=== PATIENT | female | born 1995 | race Caucasian/White ===

== ENCOUNTER 2016-09-18 15:24 | Emergency (ER) | payer OTHER ==
[2016-09-18 15:48] VITALS: BP 127/76; PULSE 80; RESP 18; TEMP 97.8; O2SAT 99
--- NOTE | 2016-09-18 16:30 | ED PDOC ---
HPI: Skin/Bite Injury Time Seen by Provider: 09/18/16 16:15 Chief Complaint (Nursing): Abnormal Skin Integrity Chief Complaint (Provider): rash History Per: Patient History/Exam Limitations: no limitations Onset/Duration Of Symptoms: Days (3-4) Additional Complaint(s): 21yo M in Ed for eval of rash to LE b/l x 2-3 days -states rash is ithcy and red and progressing. Pt denies fever, chills, foreign travel sick contacts, denies bed bugs in household. denies drainage from wound. denies pain denies swelling of legs. Past Medical History Reviewed: Historical Data, Nursing Documentation, Vital Signs Vital Signs: Last Vital Signs Temp 97.8 F 09/18/16 15:46 Pulse 80 09/18/16 15:46 Resp 18 09/18/16 15:46 BP 127/76 09/18/16 15:46 Pulse Ox 99 09/18/16 15:46 - Medical History PMH: No Chronic Diseases - Family History Family History: States: No Known Family Hx - Immunization History Hx Tetanus Toxoid Vaccination: Yes - Home Medications Home Medications: Ambulatory Orders Medication Instructions Recorded Nitrofurantoin Macrocrystals 100 mg PO BID #14 cap 11/28/14 [Macrobid] Ibuprofen [Motrin Tab] 800 mg PO Q6H PRN #20 tab 04/21/16 Silver Sulfadiazine 1% [Silver 1 unit TP BID #0 jar 04/21/16 Sulfadiazine] oxyCODONE/Acetaminophen [Percocet 1 ea PO Q6H PRN #15 tab 04/21/16 5/325 mg Tab] Calamine/Pramoxine [Caladryl] 180 ml TP DAILY #1 bottle 09/18/16 Nystatin/Triamcinolone [Mycolog 30 gm EXT DAILY #1 tube 09/18/16 Ointment] - Allergies Allergies/Adverse Reactions: Allergies Allergy/AdvReac Type Severity Reaction Status Date / Time No Known Allergies Allergy Verified 11/28/14 16:47 Review of Systems ROS Statement: Except As Marked, All Systems Reviewed And Found Negative Skin: Positive for: Rash Physical Exam - Reviewed Nursing Documentation Reviewed: Yes Vital Signs Reviewed: Yes - Physical Exam Appears: Positive for: Well, Non-toxic, No Acute Distress Head Exam: Positive for: ATRAUMATIC, NORMAL INSPECTION, NORMOCEPHALIC Skin: Positive for: Normal Color, Warm, Rash (b/l thighs, beeft red lesions with satelite lesions noted. no vesicles no induration. ) Cardiovascular/Chest: Positive for: Regular Rate, Rhythm Respiratory: Positive for: CNT, Normal Breath Sounds Extremity: Positive for: Normal ROM. Negative for: Swelling Neurologic/Psych: Positive for: Alert, Oriented - ECG O2 Sat by Pulse Oximetry: 99 Medical Decision Making Medical Decision Making: dx: dermatitis. -queta Rx: nystain and caladryl and f/u with pmd. Disposition - Clinical Impression Clinical Impression: Rash - Patient ED Disposition Is Patient to be Admitted: No Counseled Patient/Family Regarding: Diagnosis, Need For Followup, Rx Given - Disposition Disposition: Routine/Home Disposition Time: 16:45 Condition: STABLE Prescriptions: Calamine/Pramoxine [Caladryl] 180 ml TP DAILY #1 bottle Nystatin/Triamcinolone [Mycolog Ointment] 30 gm EXT DAILY #1 tube Instructions: Queta Albicans Antigen (Into the skin)
== END 2016-09-18 17:48 | disposition home or self-care (01) ==
LOC: H.ER 15:24
DX: R21 Rash and other nonspecific skin eruption (principal)

== ENCOUNTER 2018-02-22 02:24 | Emergency (ER) | payer OTHER ==
[2018-02-22 02:44] VITALS: RESP 18; O2SAT 100
[2018-02-22] MEDS ORDERED: Sodium Chloride 0.9% 1,000 ML IV STA (03:02)
--- NOTE | 2018-02-22 03:05 | ED PDOC ---
HPI: Abdomen Time Seen by Provider: 02/22/18 02:55 Chief Complaint (Nursing): Abdominal Pain Chief Complaint (Provider): abdominal pain History Per: Patient History/Exam Limitations: no limitations Onset/Duration Of Symptoms: Hrs (12) Current Symptoms Are (Timing): Still Present Location Of Pain/Discomfort: Epigastric Associated Symptoms: Nausea, Vomiting Additional Complaint(s): 22 y/o female presents for evaluation of upper abdominal pain x 12 hours. Associated multiple episodes of vomiting. Patient states symptoms started an hour and a half after eating fish soup. Denies fever, chest pain, shortness of breath, palpitations, changes in bowel movements, urinary symptoms. Past Medical History Reviewed: Historical Data, Nursing Documentation, Vital Signs Vital Signs: Last Vital Signs Temp 98.1 F 02/22/18 02:39 Pulse 66 02/22/18 02:39 Resp 18 02/22/18 02:39 BP 126/81 02/22/18 02:39 Pulse Ox 100 02/22/18 03:05 - Medical History PMH: No Chronic Diseases - Surgical History Surgical History: No Surg Hx - Family History Family History: States: No Known Family Hx - Living Arrangements Living Arrangements: With Family - Immunization History Hx Tetanus Toxoid Vaccination: Yes - Home Medications Home Medications: Ambulatory Orders Medication Instructions Recorded Nitrofurantoin Macrocrystals 100 mg PO BID #14 cap 11/28/14 [Macrobid] Ibuprofen [Motrin Tab] 800 mg PO Q6H PRN #20 tab 04/21/16 Silver Sulfadiazine 1% [Silver 1 unit TP BID #0 jar 04/21/16 Sulfadiazine] oxyCODONE/Acetaminophen [Percocet 1 ea PO Q6H PRN #15 tab 04/21/16 5/325 mg Tab] Calamine/Pramoxine [Caladryl] 180 ml TP DAILY #1 bottle 09/18/16 Nystatin/Triamcinolone [Mycolog 30 gm EXT DAILY #1 tube 09/18/16 Ointment] Famotidine [Pepcid] 20 mg PO BID #20 tab 02/22/18 Ondansetron ODT [Zofran ODT] 4 mg PO Q8 PRN #10 odt 02/22/18 - Allergies Allergies/Adverse Reactions: Allergies Allergy/AdvReac Type Severity Reaction Status Date / Time No Known Allergies Allergy Verified 02/22/18 02:38 Review of Systems ROS Statement: Except As Marked, All Systems Reviewed And Found Negative Gastrointestinal: Positive for: Nausea, Vomiting, Abdominal Pain Physical Exam - Reviewed Nursing Documentation Reviewed: Yes Vital Signs Reviewed: Yes - Physical Exam Appears: Positive for: Well, Non-toxic, No Acute Distress Head Exam: Positive for: ATRAUMATIC, NORMAL INSPECTION, NORMOCEPHALIC Skin: Positive for: Normal Color Eye Exam: Positive for: Normal appearance ENT: Positive for: Normal ENT Inspection Cardiovascular/Chest: Positive for: Regular Rate, Rhythm Respiratory: Positive for: Normal Breath Sounds Gastrointestinal/Abdominal: Positive for: Bowel Sounds, Soft, Tenderness ( epigastric) Back: Positive for: Normal Inspection Extremity: Positive for: Normal ROM Neurologic/Psych: Positive for: Alert, Oriented (x3) - Laboratory Results Result Diagrams: 02/22/18 03:47 02/22/18 03:47 - ECG O2 Sat by Pulse Oximetry: 100 - Progress ED Course And Treament: labs, urine, IV fluids, IV zofran, IV pepcid On re-eval, patient states she is feeling better. Tylenol PO ordered for mild headache 5:25 Patient tolerated PO. States she is feeling better and would like to go home. Patient educated on findings, discharged with rx Pepcid, Zofran Advised fluids, bland diet. Follow up PMD 2-3 days Return precautions given Disposition - Clinical Impression Clinical Impression: Abdominal pain, Nausea and vomiting - Patient ED Disposition Is Patient to be Admitted: No Counseled Patient/Family Regarding: Studies Performed, Diagnosis, Need For Followup, Rx Given - Disposition Disposition: Routine/Home Disposition Time: 05:28 Condition: IMPROVED Prescriptions: Famotidine [Pepcid] 20 mg PO BID #20 tab Ondansetron ODT [Zofran ODT] 4 mg PO Q8 PRN #10 odt PRN Reason: Nausea/Vomiting Instructions: Acute Abdomen (Belly Pain), Adult (DC) Forms: W-21 (Omani)
[2018-02-22 03:51] LABS: BASO % 0.4 % (0.0-2.0); EOS % 0.1 % (0.0-4.0); HEMOGLOBIN 13.8 g/dL (12.0-16.0); LYMPH # 1.2 K/uL (1.0-4.3); LYMPH % 14.2 % (20.0-40.0); MEAN CELL VOLUME 86.6 fl (81.0-99.0); MEAN CORPUSCULAR HEMOGLOBIN 29.3 pg (27.0-31.0); MEAN CORPUSCULAR HGB CONC 33.8 g/dL (33.0-37.0); MEAN PLATELET VOLUME 8.1 fl (7.2-11.7); MONO # 0.3 K/uL (0.0-0.8); MONO % 3.4 % (0.0-10.0); NEUT # 6.8 K/uL (1.8-7.0); NEUT % 81.9 % (50.0-75.0); NRBC % 0.1 % (0.0-0.0); RBC 4.73 Mil/uL (3.80-5.20); RED CELL DISTRIBUTION WIDTH 14.3 % (11.5-14.5); WHITE BLOOD COUNT 8.3 K/uL (4.8-10.8)
[2018-02-22 03:58] LABS: ALB/GLOB RATIO 1.1 (1.0-2.1); ALBUMIN 4.4 g/dL (3.5-5.0); ALT/SGPT 14 U/L (9-52); AST/SGOT 19 U/L (14-36); BLOOD UREA NITROGEN 14 mg/dl (7-17); CALCIUM 9.1 mg/dL (8.4-10.2); GFR NON-AFRICAN AMERICAN > 60; LIPASE 73 U/L (23-300)
[2018-02-22 05:51] VITALS: BP 102/55; PULSE 71; TEMP 98.3
== END 2018-02-22 05:52 | disposition home or self-care (01) ==
LOC: H.ER 02:24
DX: R10.9 Unspecified abdominal pain (principal); R11.2 Nausea with vomiting, unspecified
CPT/HCPCS: 80053; 81025; 83690; 85025; 96374; 99284; J2405; J7030

== ENCOUNTER 2018-02-23 03:09 | Inpatient (IN) | payer OTHER ==
[2018-02-23] MEDS ORDERED: Sodium Chloride 0.9% 1,000 ML IV STA (03:31)
[2018-02-23 03:58] LABS: BASO % 0.4 % (0.0-2.0); EOS # 0.1 K/uL (0.0-0.7); EOS % 1.6 % (0.0-4.0); HEMOGLOBIN 12.5 g/dL (12.0-16.0); LYMPH # 2.7 K/uL (1.0-4.3); LYMPH % 33.4 % (20.0-40.0); MEAN CELL VOLUME 86.8 fl (81.0-99.0); MEAN CORPUSCULAR HGB CONC 33.4 g/dL (33.0-37.0); MEAN PLATELET VOLUME 8.1 fl (7.2-11.7); MONO # 0.5 K/uL (0.0-0.8); NEUT # 4.7 K/uL (1.8-7.0); NEUT % 58.6 % (50.0-75.0); NRBC % 0.1 % (0.0-0.0); RBC 4.33 Mil/uL (3.80-5.20); RED CELL DISTRIBUTION WIDTH 14.5 % (11.5-14.5); WHITE BLOOD COUNT 8.1 K/uL (4.8-10.8)
--- NOTE | 2018-02-23 04:09 | ED PDOC ---
HPI: Abdomen Time Seen by Provider: 02/23/18 03:25 Chief Complaint (Nursing): Abdominal Pain Chief Complaint (Provider): abdominal pain History Per: Patient History/Exam Limitations: no limitations Onset/Duration Of Symptoms: Days (x2) Current Symptoms Are (Timing): Still Present Location Of Pain/Discomfort: Epigastric Associated Symptoms: Nausea, Back Pain. denies: Fever, Chills, Diarrhea, Urinary Symptoms Additional Complaint(s): Shanon Arreaga is a 22 year old female, with no significant past medical history, who presents to the emergency department complaining of an abdominal pain onset for x2 days. Patient was seen in ED for the same complaints 24 hrs ago and was treated for gastritis. She reports improvement upon leaving but was unable to fill prescriptions. Patient states pain became worst and radiates to the back. She also reports a persistent nausea but no fever, chills, diarrhea, cough, shortness of breath or urinary symptoms. PMD: [place]. Past Medical History Reviewed: Historical Data, Nursing Documentation, Vital Signs Vital Signs: Last Vital Signs Temp 98.5 F 02/23/18 03:27 Pulse 79 02/23/18 06:25 Resp 16 02/23/18 06:25 BP 117/60 02/23/18 06:25 Pulse Ox 98 02/23/18 06:25 - Medical History PMH: No Chronic Diseases - Surgical History Surgical History: No Surg Hx - Family History Family History: States: Unknown Family Hx - Social History Current smoker - smoking cessation education provided: No Alcohol: None Drugs: Denies - Immunization History Hx Tetanus Toxoid Vaccination: Yes - Home Medications Home Medications: Ambulatory Orders Medication Instructions Recorded Nitrofurantoin Macrocrystals 100 mg PO BID #14 cap 11/28/14 [Macrobid] Ibuprofen [Motrin Tab] 800 mg PO Q6H PRN #20 tab 04/21/16 Silver Sulfadiazine 1% [Silver 1 unit TP BID #0 jar 04/21/16 Sulfadiazine] oxyCODONE/Acetaminophen [Percocet 1 ea PO Q6H PRN #15 tab 04/21/16 5/325 mg Tab] Calamine/Pramoxine [Caladryl] 180 ml TP DAILY #1 bottle 09/18/16 Nystatin/Triamcinolone [Mycolog 30 gm EXT DAILY #1 tube 09/18/16 Ointment] Famotidine [Pepcid] 20 mg PO BID #20 tab 02/22/18 Ondansetron ODT [Zofran ODT] 4 mg PO Q8 PRN #10 odt 02/22/18 - Allergies Allergies/Adverse Reactions: Allergies Allergy/AdvReac Type Severity Reaction Status Date / Time No Known Allergies Allergy Verified 02/23/18 03:30 Review of Systems ROS Statement: Except As Marked, All Systems Reviewed And Found Negative Constitutional: Negative for: Fever, Chills Respiratory: Negative for: Cough, Shortness of Breath Gastrointestinal: Positive for: Nausea, Abdominal Pain. Negative for: Diarrhea Genitourinary Female: Negative for: Dysuria, Frequency Musculoskeletal: Positive for: Back Pain Physical Exam - Reviewed Nursing Documentation Reviewed: Yes Vital Signs Reviewed: Yes - Physical Exam Appears: Positive for: No Acute Distress Head Exam: Positive for: ATRAUMATIC, NORMAL INSPECTION, NORMOCEPHALIC Skin: Positive for: Normal Color, Warm, Dry Eye Exam: Positive for: Normal appearance, EOMI, PERRL Neck: Positive for: Painless ROM Cardiovascular/Chest: Positive for: Regular Rate, Rhythm. Negative for: Murmur Respiratory: Positive for: Normal Breath Sounds. Negative for: Respiratory Distress Gastrointestinal/Abdominal: Positive for: Tenderness (epigastric), Other (+ Agosto's sign) Back: Positive for: Normal Inspection. Negative for: L CVA Tenderness, R CVA Tenderness, Vertebral Tenderness Extremity: Positive for: Normal ROM (upper and lower extremities). Negative for : Deformity, Swelling Neurologic/Psych: Positive for: Alert, Oriented. Negative for: Motor/Sensory Deficits - Laboratory Results Result Diagrams: 02/23/18 03:54 02/23/18 03:54 - ECG O2 Sat by Pulse Oximetry: 100 (RA) Pulse Ox Interpretation: Normal Medical Decision Making Medical Decision Making: Time: 03:25 Initial Impression: 22 y/o female with persistent abdominal pain Initial Plan: --Abd & Pelvis IV Contrast [CT] --CMP --Lipase --Urine dipstick --Urine --CBC w/ differential --Pepcid 20 mg IV --Morphine 4 mg IVP --Sodium Chloride 1,000 ml IV 1,000 mls/hr --Zofran Inj 4 mg IV --Urinalysis --Reevaluation 05:21 Abdomen/Pelvis CT FINDINGS: Lower thorax: Granuloma right base. Atelectasis in the bases. ABDOMEN: Liver: Questionable small area of enhancement in the right hepatic lobe image 30 Gallbladder and bile ducts: Normal. No calcified stones. No ductal dilation. Pancreas: Normal. No ductal dilation. Spleen: Normal. No splenomegaly. Adrenals: Normal. No mass. Kidneys and ureters: Normal. No hydronephrosis. Stomach and bowel: A few colonic diverticula without diverticulitis. Appendix: No evidence of appendicitis. PELVIS: Bladder: Unremarkable as visualized. Reproductive: Unremarkable as visualized. ABDOMEN and PELVIS: Intraperitoneal space: A sliver of free fluid in the pelvis probably physiologic in nature. Bones/joints: No acute fracture. No dislocation. Soft tissues: Unremarkable. Vasculature: Normal. No abdominal aortic aneurysm. Lymph nodes: Normal. No enlarged lymph nodes. IMPRESSION: No acute findings. 05:30 -Patient is still reporting pain. Ordered ultrasound and Protonix. 07:00 -Patient will be signed out to Dr. Colon. ----- Scribe Attestation: Documented by Farrukh Steinberg, acting as a scribe for Guicho Flores MD. Provider Scribe Attestation: All medical record entries made by the Scribe were at my direction and personally dictated by me. I have reviewed the chart and agree that the record accurately reflects my personal performance of the history, physical exam, medical decision making, and the department course for this patient. I have also personally directed, reviewed, and agree with the discharge instructions and disposition. Disposition - Clinical Impression Clinical Impression: Abdominal pain in female, Gastritis - Disposition Disposition: Transfer of Care Disposition Time: 07:00 Condition: FAIR Forms: [employer] (Czech)
[2018-02-23 04:10] LABS: ALB/GLOB RATIO 1.1 (1.0-2.1); ALBUMIN 3.8 g/dL (3.5-5.0); ALT/SGPT 11 U/L (9-52); AST/SGOT 18 U/L (14-36); BLOOD UREA NITROGEN 10 mg/dl (7-17); CALCIUM 8.3 mg/dL (8.4-10.2); GFR NON-AFRICAN AMERICAN > 60; LIPASE 127 U/L (23-300)
[2018-02-23] MEDS ORDERED: Iohexol 300 100 ML IJ ONE (04:48)
[2018-02-23] MEDS ORDERED: Sodium Chloride 0.9% 50 ML IV ONE (04:48)
[2018-02-23] MEDS ORDERED: Sterile Water 10 ML IV ONE (05:37)
[2018-02-23] MEDS ORDERED: Potassium Chloride 20 mEq ER Tab PO STA (07:37)
--- NOTE | 2018-02-23 07:37 | ED PDOC ---
- Laboratory Results Result Diagrams: 02/23/18 03:54 02/23/18 03:54 Interpretation Of Abn Labs: 3.5 k Urine dip results: Negative for: Leukocyte Esterase, Nitrate - ECG O2 Sat by Pulse Oximetry: 98 Pulse Ox Interpretation: Normal - Progress ED Course And Treament: 700: Took over care from Dr. Flores. FU on US. Here with RUQ pain. CT no findings. IMPRESSION: Internal echoes within the gallbladder consistent with gallbladder sludge. There appears to be the suggestion of some mild gallbladder wall thickening and some hypoechoic gallbladder wall edema and/or pericholecystic fluid. Sonographic Agosto's sign was also elicited by the technologist. Imaging findings are suspicious for cholecystitis in the correct clinical setting. 7 millimeter common bile duct without common bile duct stone. 922: Stable. Spoke with surgery resident. Will see pt. in the ER. Given zosyn. 1043: Stable. Spoke with surgery who will consult. Spoke with Dr. España. Will admit. Disposition - Clinical Impression Clinical Impression: Cholecystitis - POA Present On Arrival: None - Disposition Disposition: Admitted as In-Patient Disposition Time: 10:44 Condition: FAIR
--- NOTE | 2018-02-23 09:11 | US ---
Date of service: 02/23/2018 HISTORY: gall stone COMPARISON: None. TECHNIQUE: Sonographic evaluation of the right upper quadrant of the abdomen. FINDINGS: LIVER: Measures 13.0 cm in length. Normal echogenicity of the liver parenchyma. No mass. No intrahepatic bile duct dilatation. GALLBLADDER: There is abnormal appearance of the gallbladder. This would include internal echoes which probably suggest gallbladder sludge. There is additionally the suggestion of gallbladder wall thickening and probable mild edema of the gallbladder wall. Gallbladder wall measures 4 millimeters. Positive sonographic Agosto sign was also elicited by the technologist. There is a tiny probable gallbladder polyp seen posteriorly in the gallbladder. Minimal amount of pericholecystic fluid is also not excluded. COMMON BILE DUCT: Measures 7 mm. No stones. No dilatation. PANCREAS: Unremarkable as visualized. No mass. No ductal dilatation. RIGHT KIDNEY: Measures 10.4 cm in length. Normal echogenicity. No calculus, mass, or hydronephrosis. AORTA: No aneurysmal dilatation. IVC: Unremarkable. OTHER FINDINGS: None . IMPRESSION: Internal echoes within the gallbladder consistent with gallbladder sludge. There appears to be the suggestion of some mild gallbladder wall thickening and some hypoechoic gallbladder wall edema and/or pericholecystic fluid. Sonographic Agosto's sign was also elicited by the technologist. Imaging findings are suspicious for cholecystitis in the correct clinical setting. 7 millimeter common bile duct without common bile duct stone.
[2018-02-23] MEDS ORDERED: Piperacillin/Tazobact 3.375 GM in Sodium Chloride 0.9% 100 ML IV STA (09:17)
[2018-02-23] MEDS ORDERED: Piperacillin/Tazobact 3.375 gm Inj IVPB ONE (09:28)
[2018-02-23] MEDS ORDERED: Potassium Chloride 20 mEq ER Tab PO ONE (09:28)
--- NOTE | 2018-02-23 10:33 | CP.PCM.CON ---
History of Present Illness - History of Present Illness History of Present Illness: Surgery Consult: Dr. Phillips Pt is a 22F with no past medical or surgical history who presents to [facility] with complaints of abdominal pain & nausea/vomiting x 2 days. Pt states she was in the ER yesterday as well for similar complaints however her pain improved and she was sent home. Pt states her abdominal pain started on Friday night and got worse yesterday with several episodes of non-bloody, bilious vomiting. She admits to having similar episodes on and off for the past few weeks. She admits to subjective fevers/chills, denies diarrhea/constipation, chest pain or SOB. In the ER, pt had an US of the RUQ which shows GB with sludge, mild wall thickening, + pericholecystic fluid & + sonographic Agosto's sign. Surgery called to evaluate. Currently, pt is resting comfortably. States her abdominal pain has now returned after the pain medication has worn off. She denies any more episode of vomiting. Denies other complaints at this time. PMHx: denies PSHx: denies SocialHx: denies smoking/drugs, occasional EtOH NKDA Review of Systems - Review of Systems All systems: reviewed and no additional remarkable complaints except (as per HPI ) Past Patient History - Infectious Disease Hx of Infectious Diseases: None - Past Social History Alcohol: None Drugs: Denies - CARDIAC Hx Cardiac Disorders: No - PULMONARY Hx Respiratory Disorders: No - NEUROLOGICAL Hx Neurological Disorder: No - ENDOCRINE/METABOLIC Hx Endocrine Disorders: No - GASTROINTESTINAL Hx Gastrointestinal Disorders: No - PSYCHIATRIC Hx Substance Use: No - SURGICAL HISTORY Hx Surgeries: No - ANESTHESIA Hx Anesthesia: No Meds Allergies/Adverse Reactions: Allergies Allergy/AdvReac Type Severity Reaction Status Date / Time No Known Allergies Allergy Verified 02/23/18 03:30 - Medications Medications: Current Medications Piperacillin Sod/Tazobactam (Sod 3.375 gm/ Sodium Chloride) 100 mls @ 100 mls/ hr IVPB Q12 ALEXY PRN Reason: Protocol Morphine Sulfate (Morphine) 4 mg IVP Q6 PRN PRN Reason: Pain, moderate (4-7) Ondansetron HCl (Zofran Inj) 4 mg IVP Q4 PRN PRN Reason: Nausea/Vomiting Physical Exam - Constitutional Appears: Well, No Acute Distress - Head Exam Head Exam: ATRAUMATIC, NORMOCEPHALIC - Eye Exam Eye Exam: Normal appearance - ENT Exam ENT Exam: Mucous Membranes Moist - Respiratory Exam Respiratory Exam: NORMAL BREATHING PATTERN - Cardiovascular Exam Cardiovascular Exam: RRR - GI/Abdominal Exam GI & Abdominal Exam: Soft, Tenderness (epigastric & RUQ ). absent: Distended, Guarding, Rebound - Neurological Exam Neurological exam: Alert, Oriented x3 - Skin Skin Exam: Dry, Warm Results - Vital Signs Recent Vital Signs: Last Vital Signs Temp 97.6 F 02/23/18 07:31 Pulse 59 L 02/23/18 07:31 Resp 19 02/23/18 07:31 BP 105/62 02/23/18 07:31 Pulse Ox 98 02/23/18 09:28 - Labs Result Diagrams: 02/23/18 03:54 02/23/18 03:54 Labs: Laboratory Results - last 24 hr 02/23/18 02/23/18 03:54 03:54 WBC 8.1 RBC 4.33 Hgb 12.5 Hct 37.6 MCV 86.8 MCH 29.0 MCHC 33.4 RDW 14.5 Plt Count 240 MPV 8.1 Neut % (Auto) 58.6 Lymph % (Auto) 33.4 Burke % (Auto) 6.0 Eos % (Auto) 1.6 Baso % (Auto) 0.4 Neut # (Auto) 4.7 Lymph # (Auto) 2.7 Burke # (Auto) 0.5 Eos # (Auto) 0.1 Baso # (Auto) 0.0 Sodium 141 Potassium 3.5 L Chloride 105 Carbon Dioxide 26 Anion Gap 14 BUN 10 Creatinine 0.7 Est GFR ( Amer) > 60 Est GFR (Non-Af Amer) > 60 Random Glucose 101 Calcium 8.3 L Total Bilirubin 0.2 AST 18 ALT 11 Alkaline Phosphatase 45 Total Protein 7.2 Albumin 3.8 Globulin 3.4 Albumin/Globulin Ratio 1.1 Lipase 127 - Imaging and Cardiology US - abdomen Status: Image reviewed by me, Report reviewed by me Assessment & Plan - Assessment and Plan (Free Text) Assessment: 22F with cholecystitis Plan: - IV ABX - pain management - plan for OR [place] AM for lap ravinder - d/w Dr. Jacqueline Dunaway
[2018-02-23 10:40] LABS: SQUAMOUS EPITHIAL 16 /hpf (0-5); URINE BACTERIA RARE (<OCC); URINE BILIRUBIN NEGATIVE (NEGATIVE); URINE BLOOD SMALL (NEGATIVE); URINE CLARITY CLOUDY (Clear); URINE COLOR YELLOW (YELLOW); URINE GLUCOSE (UA) NEG (Normal); URINE LEUKOCYTE ESTERASE LARGE Leu/uL (Negative); URINE PROTEIN NEGATIVE (NEGATIVE); URINE UROBILINOGEN 0.2-1.0 mg/dL (0.2-1.0)
--- NOTE | 2018-02-23 10:45 | CT ---
Date of service: 02/23/2018 PROCEDURE: CT Abdomen and Pelvis with contrast HISTORY: abd pain COMPARISON: None. TECHNIQUE: Contrast dose: 96 cc Omnipaque Radiation dose: Total exam DLP = 630 mGy-cm. This CT exam was performed using one or more of the following dose reduction techniques: Automated exposure control, adjustment of the mA and/or kV according to patient size, and/or use of iterative reconstruction technique. FINDINGS: LOWER THORAX: There is a calcified granuloma in the right lower lobe on axial image 15. No focal infiltrate or effusion is noted. Visualized distal esophagus is unremarkable. No pericardial effusion is seen. LIVER: There is a tiny area of enhancement seen in the posterior right lobe of the liver on axial image 30 and 31 probably representing tiny congenital shunt. No mass enhancing lesions are seen. No focal liver mass is noted. No intrahepatic ductal dilatation is seen. No perihepatic fluid is noted. GALLBLADDER AND BILE DUCTS: Unremarkable. PANCREAS: Unremarkable. No gross lesion or ductal dilatation. SPLEEN: Unremarkable. ADRENALS: Unremarkable. No mass. KIDNEYS AND URETERS: Unremarkable. No hydronephrosis. No solid mass. VASCULATURE: Unremarkable. No aortic aneurysm. BOWEL: Unremarkable. No obstruction. No gross mural thickening. No pericolonic inflammatory changes seen. Stomach is unremarkable. Duodenum is within normal limits. Common bile duct is normal in size. APPENDIX: Normal appendix. PERITONEUM: Unremarkable. No free fluid. No free air. LYMPH NODES: Unremarkable. No enlarged lymph nodes. BLADDER: Unremarkable. REPRODUCTIVE: Unremarkable. BONES: No acute fracture. OTHER FINDINGS: Minimal physiologic fluid is seen in the pelvis. No adnexal masses are seen. IMPRESSION: No appreciable acute inflammatory process in the abdomen or pelvis. This agrees with preliminary report.
[2018-02-23] MEDS: Piperacillin/Tazobact 3.375 GM in Sodium Chloride 0.9% 100 ML IVPB SCH (21:19)
--- NOTE | 2018-02-23 23:44 | CP.PCM.HP ---
History of Present Illness - History of Present Illness History of Present Illness: This is a 22 y/o female admitted for worsening of abdominal pain mostly RUQ to epigastric, for 2 days. She denies having any fever. Has some nausea but no vomiting. She had seen her PMD recently and was given tx for gastritis. Initial imaging at the [facility] showed cholelithiasis and possibly cholecystitis. WBC was normal. She denies any significant medical hx. Not on any medication. Present on Admission - Present on Admission Any Indicators Present on Admission: No History of DVT/PE: No History of Uncontrolled Diabetes: No Urinary Catheter: No Decubitus Ulcer Present: No Review of Systems - Gastrointestinal Gastrointestinal: Abdominal Pain, Belching, Nausea Past Patient History - Infectious Disease Hx of Infectious Diseases: None - Past Medical History & Family History Past Medical History?: No - Past Social History Smoking Status: Never Smoked - CARDIAC Hx Cardiac Disorders: No - PULMONARY Hx Respiratory Disorders: No - NEUROLOGICAL Hx Neurological Disorder: No - ENDOCRINE/METABOLIC Hx Endocrine Disorders: No - MUSCULOSKELETAL/RHEUMATOLOGICAL Hx Falls: No - GASTROINTESTINAL Hx Gastrointestinal Disorders: No - GENITOURINARY/GYNECOLOGICAL Hx Genitourinary Disorders: No - PSYCHIATRIC Hx Psychophysiologic Disorder: No Hx Substance Use: No - SURGICAL HISTORY Hx Surgeries: No - ANESTHESIA Hx Anesthesia: No Meds Allergies/Adverse Reactions: Allergies Allergy/AdvReac Type Severity Reaction Status Date / Time No Known Allergies Allergy Verified 02/23/18 03:30 Physical Exam - Head Exam Head Exam: NORMAL INSPECTION - Eye Exam Eye Exam: Normal appearance - ENT Exam ENT Exam: Mucous Membranes Moist - Respiratory Exam Respiratory Exam: Clear to Auscultation Bilateral - Cardiovascular Exam Cardiovascular Exam: REGULAR RHYTHM - GI/Abdominal Exam GI & Abdominal Exam: Tenderness - Neurological Exam Neurological exam: CN II-XII Intact, Oriented x3 - Psychiatric Exam Psychiatric exam: Normal Mood Results - Vital Signs Recent Vital Signs: Last Vital Signs Temp 98.8 F 02/23/18 16:05 Pulse 61 02/23/18 16:05 Resp 20 02/23/18 16:05 BP 119/75 02/23/18 16:05 Pulse Ox 100 02/23/18 16:05 - Labs Result Diagrams: 02/23/18 03:54 02/23/18 03:54 Labs: Laboratory Results - last 24 hr 02/23/18 02/23/18 02/23/18 03:54 03:54 10:20 WBC 8.1 RBC 4.33 Hgb 12.5 Hct 37.6 MCV 86.8 MCH 29.0 MCHC 33.4 RDW 14.5 Plt Count 240 MPV 8.1 Neut % (Auto) 58.6 Lymph % (Auto) 33.4 [place] % (Auto) 6.0 Eos % (Auto) 1.6 Baso % (Auto) 0.4 Neut # (Auto) 4.7 Lymph # (Auto) 2.7 [place] # (Auto) 0.5 Eos # (Auto) 0.1 Baso # (Auto) 0.0 APTT Sodium 141 Potassium 3.5 L Chloride 105 Carbon Dioxide 26 Anion Gap 14 BUN 10 Creatinine 0.7 Est GFR ( Amer) > 60 Est GFR (Non-Af Amer) > 60 Random Glucose 101 Calcium 8.3 L Total Bilirubin 0.2 AST 18 ALT 11 Alkaline Phosphatase 45 Total Protein 7.2 Albumin 3.8 Globulin 3.4 Albumin/Globulin Ratio 1.1 Lipase 127 Urine Color Yellow Urine Clarity Cloudy Urine pH 6.0 Ur Specific [place] 1.031 H Urine Protein Negative Urine Glucose (UA) Neg Urine Ketones Trace Urine Blood Small Urine Nitrate Negative Urine Bilirubin Negative Urine Urobilinogen 0.2-1.0 Ur Leukocyte Esterase Large Urine RBC (Auto) 2 Urine Microscopic WBC 29 H Ur Squamous Epith Cells 16 H Urine Bacteria Rare 02/23/18 13:05 WBC RBC Hgb Hct MCV MCH MCHC RDW Plt Count MPV Neut % (Auto) Lymph % (Auto) [place] % (Auto) Eos % (Auto) Baso % (Auto) Neut # (Auto) Lymph # (Auto) [place] # (Auto) Eos # (Auto) Baso # (Auto) APTT 27.4 Sodium Potassium Chloride Carbon Dioxide Anion Gap BUN Creatinine Est GFR ( Amer) Est GFR (Non-Af Amer) Random Glucose Calcium Total Bilirubin AST ALT Alkaline Phosphatase Total Protein Albumin Globulin Albumin/Globulin Ratio Lipase Urine Color Urine Clarity Urine pH Ur Specific [place] Urine Protein Urine Glucose (UA) Urine Ketones Urine Blood Urine Nitrate Urine Bilirubin Urine Urobilinogen Ur Leukocyte Esterase Urine RBC (Auto) Urine Microscopic WBC Ur Squamous Epith Cells Urine Bacteria Assessment & Plan (1) Cholelithiases Status: Acute (2) Cholecystitis Status: Acute - Assessment and Plan (Free Text) Plan: Pain meds NPO Hydrate pain meds surgical eval ically stable for surgery.
[2018-02-24] MEDS ORDERED: Lactated Ringer's 500 ML IV SCH (03:00)
[2018-02-24 07:02] LABS: HEMOGLOBIN 12.8 g/dL (12.0-16.0); MEAN CELL VOLUME 87.7 fl (81.0-99.0); MEAN CORPUSCULAR HEMOGLOBIN 29.1 pg (27.0-31.0); MEAN CORPUSCULAR HGB CONC 33.2 g/dL (33.0-37.0); RBC 4.4 Mil/uL (3.80-5.20); RED CELL DISTRIBUTION WIDTH 14.3 % (11.5-14.5); WHITE BLOOD COUNT 6.5 K/uL (4.8-10.8)
[2018-02-24 07:21] LABS: LDL CHOLESTEROL 68 mg/dL (0-129)
[2018-02-24 07:30] LABS: BLOOD UREA NITROGEN 4 mg/dl (7-17); CALCIUM 8.6 mg/dL (8.4-10.2); GFR NON-AFRICAN AMERICAN > 60; HDL CHOLESTEROL 49 MG/DL (30-70)
[2018-02-24] MEDS ORDERED: Propofol 10 mg/ml Inj (20 ML) ONE (07:34)
[2018-02-24] MEDS ORDERED: Succinylcholine 200 mg/10 ml Inj IV ONE (07:34)
[2018-02-24] MEDS ORDERED: Midazolam 2 MG/2 ML VIAL ONE (07:34)
[2018-02-24] MEDS ORDERED: Sevoflurane - Inhalation Anesthetic Liq (250 ml) ONE (07:35)
[2018-02-24] MEDS ORDERED: Dexamethasone 4 mg/1 ml ONE (07:35)
[2018-02-24] MEDS ORDERED: Lidocaine 4% (Laryng-O-Jet) Kit MM ONE (07:35)
[2018-02-24] MEDS ORDERED: Lidocaine 1% 5ml Abboject IV ONE (07:35)
[2018-02-24] MEDS ORDERED: Neostigmine 1:1000 (1 mg/ml) Inj ONE (07:35)
[2018-02-24] MEDS ORDERED: Rocuronium 10 mg/ml (5 ml) ONE (07:38)
[2018-02-24] MEDS ORDERED: Bupivacaine HCl 0.5% PF (30 ml) Inj ONE (07:59)
[2018-02-24] MEDS ORDERED: Lactated Ringer's 1,000 ML IV ONE ×3 (08:20→11:30)
[2018-02-24] MEDS: Piperacillin/Tazobact 3.375 GM in Sodium Chloride 0.9% 100 ML IVPB SCH ×2 (08:25→21:34)
--- NOTE | 2018-02-24 10:07 | PCM.SURG1 ---
Surgeon's Initial Post Op Note - Surgeon's Notes Surgeon: Dr. Phillips Rubbing Bed Operator: Dr. Dunaway PGY-3, Dr. Hurtado PGY-2 Type of Anesthesia: General Endo Pre-Operative Diagnosis: Cholecystitis Operative Findings: See operative report Post-Operative Diagnosis: Same Operation Performed: Laparoscopic Cholecystectomy Specimen/Specimens Removed: Gallbladder Estimated Blood Loss: EBL {In ML}: 10 Blood Products Given: N/A Drains Used: No Drains Post-Op Condition: Good Date of Surgery/Procedure: 02/24/18 Time of Surgery/Procedure: 10:06
[2018-02-24] MEDS ORDERED: Lactated Ringer's 1,000 ML IV SCH (10:15)
[2018-02-24] MEDS: Oxycodone/Acetaminophen 5/325 mg Tab PO PRN ×2 (13:01→20:44)
[2018-02-24] MEDS: Lactated Ringer's 1,000 ML IV SCH (18:06)
[2018-02-24] MEDS ORDERED: Alum-Mag Hydrox-Simethicone Susp (30 mL) PO ONE (20:58)
--- NOTE | 2018-02-24 21:06 | OP ---
Copied To: Brodie Phillips MD Attending MD: Brodie Phillips MD PROCEDURE DATE: 02/23/2018 PREOPERATIVE DIAGNOSES: Acute cholecystitis and cholelithiasis. POSTOPERATIVE DIAGNOSES: 1. Acute cholecystitis and cholelithiasis. 2. Extensive postinfectious peritoneal adhesion. PROCEDURES DONE: 1. Laparoscopic cholecystectomy. 2. Laparoscopic extensive lysis of adhesions. SURGEON: Brodie Phillips MD BILLING SERVICES MANAGER: , PGY4 resident and Chito Hurtado PGY2 resident. TYPE OF ANESTHESIA: General endotracheal. ESTIMATED BLOOD LOSS: Around 20 mL. DRAIN: None. PATHOLOGY: The gallbladder with the gallstone was sent for the pathology. COMPLICATIONS: None. INTRAOPERATIVE FINDINGS: The patient had extensive omental and peritoneal adhesion to the gallbladder and to the right upper quadrant, and the patient had of acute cholecystitis and cholelithiasis. DESCRIPTION OF PROCEDURE: On intraoperative steps, this is a 22-year-old female who was diagnosed with acute cholecystitis and cholelithiasis and the patient was consented for the laparoscopic cholecystectomy possible open and brought to the OR and placed on the operating table after induction of the anesthesia. Abdomen was prepped and draped in usual sterile fashion. The supraumbilical transverse incision was made after incising skin, subcutaneous tissue, and the fascia. The Shayy port was placed and pneumo was created. Another 12 mm port was placed in upper abdomen and two 5 mm port was placed in the midclavicular and anterior axillary line after the grasper and dissector was introduced and the gallbladder appeared to be completely adhesed to the omentum and the patient had extensive postinfectious and postinflammatory adhesions. First, extensive lysis of adhesion was done. The omentum was completely and the colon was also from the gallbladder and then the gallbladder was resected cranially. Calot's triangle dissection was done. Cystic duct and cystic artery was identified. The critical view of the safety was identified and top down approach was done and then the cystic duct common bile duct junction was identified and the cystic duct was clipped at three places. Cystic artery was also clipped at three places and cut in between two clips in the gallbladder and the gallbladder was dissected free from the gallbladder fossa and taken in an EndoCatch bag, taken out through the umbilical port site and then sent for pathology. There was a proper hemostasis in each and every part of the procedure and after proper hemostasis and after proper suction irrigation, all the port was taken out under vision. Pneumo was deflated. Umbilical port site was closed in two layer, the fascia with 0 Vicryl interrupted suture and skin with a 4-0 Monocryl and dry sterile dressing was applied. The patient tolerated the procedure well. Count of instrument and gauze was correct. There was no apparent complications. The patient was extubated in OR and sent to the postanesthesia care in stable condition. Brodie Phillips MD
--- NOTE | 2018-02-25 00:50 | CP.PCM.PN ---
Subjective - Date & Time of Evaluation Date of Evaluation: 02/24/18 Time of Evaluation: 12:00 - Subjective Subjective: Patient did well with surgery. has some nausea and epigastric pain Has no fever. Objective - Vital Signs/Intake and Output Vital Signs (last 24 hours): Temp Pulse Resp BP Pulse Ox 98.6 F 54 L 18 105/67 98 02/24/18 21:11 02/24/18 21:11 02/24/18 21:11 02/24/18 21:11 02/24/18 21:11 Intake and Output: 02/24/18 02/25/18 18:59 06:59 Intake Total 950 Balance 950 - Medications Medications: Current Medications Acetaminophen (Tylenol 325mg Tab) 325 mg PO Q4 PRN PRN Reason: Headache Last Admin: 02/23/18 17:50 Dose: 325 mg Piperacillin Sod/Tazobactam (Sod 3.375 gm/ Sodium Chloride) 100 mls @ 100 mls/ hr IVPB Q12 [facility] PRN Reason: Protocol Last Admin: 02/24/18 21:34 Dose: 100 mls/hr Lactated Ringer's (Lactated Ringer's) 1,000 mls @ 150 mls/hr IV .[id number] [facility] Last Admin: 02/24/18 18:06 Dose: 150 mls/hr Morphine Sulfate (Morphine) 2 mg IVP Q4 PRN PRN Reason: Pain, severe (8-10) Last Admin: 02/24/18 23:31 Dose: 2 mg Ondansetron HCl (Zofran Inj) 4 mg IVP Q4 PRN PRN Reason: Nausea/Vomiting Last Admin: 02/24/18 17:19 Dose: 4 mg Oxycodone/Acetaminophen (Percocet 5/325 Mg Tab) 1 tab PO Q4 PRN PRN Reason: Pain, moderate (4-7) Stop: 02/27/18 10:06 Last Admin: 02/24/18 20:44 Dose: 1 tab Pantoprazole Sodium (Protonix Inj) 40 mg IVP DAILY [facility] Last Admin: 02/24/18 21:33 Dose: 40 mg - Labs Labs: 02/24/18 06:10 02/24/18 07:00 APTT 27.4 Seconds (25.6-37.1) 02/23/18 13:05 - Head Exam Head Exam: NORMAL INSPECTION - Eye Exam Eye Exam: Normal appearance - Respiratory Exam Respiratory Exam: Clear to Ausculation Bilateral - Cardiovascular Exam Cardiovascular Exam: REGULAR RHYTHM - GI/Abdominal Exam GI & Abdominal Exam: Normal Bowel Sounds Assessment and Plan (1) Cholelithiases Status: Acute (2) Cholecystitis Status: Acute - Assessment and Plan (Free Text) Plan: Cnt meds pain meds antacid start clear liquids
[2018-02-25] MEDS: Lactated Ringer's 1,000 ML IV SCH ×2 (00:57→08:44)
[2018-02-25 01:33] VITALS: RESP 20
[2018-02-25 06:25] VITALS: O2SAT 98
[2018-02-25] MEDS: Oxycodone/Acetaminophen 5/325 mg Tab PO PRN (06:29)
[2018-02-25 06:33] LABS: BLOOD UREA NITROGEN 4 mg/dl (7-17); CALCIUM 8.2 mg/dL (8.4-10.2); GFR NON-AFRICAN AMERICAN > 60
[2018-02-25 06:36] LABS: HEMOGLOBIN 12.1 g/dL (12.0-16.0); MEAN CELL VOLUME 87.3 fl (81.0-99.0); MEAN CORPUSCULAR HEMOGLOBIN 28.8 pg (27.0-31.0); RBC 4.2 Mil/uL (3.80-5.20); RED CELL DISTRIBUTION WIDTH 14.1 % (11.5-14.5); WHITE BLOOD COUNT 7.7 K/uL (4.8-10.8)
[2018-02-25] MEDS: Piperacillin/Tazobact 3.375 GM in Sodium Chloride 0.9% 100 ML IVPB SCH (08:45)
[2018-02-25] MEDS ORDERED: Simethicone 80 mg Chewtab PO ONE (13:22)
--- NOTE | 2018-02-25 15:04 | CP.PCM.PCO ---
Assessment/Plan - Assessment/Plan Assessment (Free Text): Pt stable, ambulating on unit, tolerating diet. Seen and cleared for d/c home by Sx resident, Dr. Degroot, with no antibiotics. Pt seen and cleared for d/c home by Dr. España. Pt to f/u with PMD and Dr. Phillips in 1 week.
[2018-02-25 16:10] VITALS: BP 97/59; PULSE 84; TEMP 97.2
== END 2018-02-25 18:00 | disposition home or self-care (01) | DRG 494 ==
LOC: H.ER 03:09 → H.ERHOLD 10:41 → H.MEDSURG1 11:33
PROVIDERS: ADMIT Family Medicine; ATTEND Family Medicine
PROC: 0FT44ZZ Resection of Gallbladder, Percutaneous Endoscopic Approach (ICD-10-PCS; principal; 2018-02-23)
PROC: 0DNW4ZZ Release Peritoneum, Percutaneous Endoscopic Approach (ICD-10-PCS; 2018-02-23)
DX: K80.00 Calculus of gallbladder with acute cholecystitis without obstruction (principal); Z91.041 Radiographic dye allergy status; K66.0 Peritoneal adhesions (postprocedural) (postinfection); K29.70 Gastritis, unspecified, without bleeding